=== PATIENT | female | born 1950 | race Two or more races ===

== ENCOUNTER 2021-08-10 16:58 | Emergency (ER) | payer MEDICARE, OTHER ==
[~2021-08-10] VITALS: Ht 154.9 cm; Wt 62.6 kg
[~2021-08-10 16:58] MED LIST: CAPT50TA3 PO; METF500T PO; OMEP20CA4 PO; SERT50TA PO
[2021-08-10 17:58] LABS: HEMATOCRIT 41.6 % (31.2-41.9); MEAN CORPUSCULAR HEMOGLOBIN 30.4 uug (24.7-32.8); MEAN CORPUSCULAR VOLUME 89.7 fL (75.5-95.3); PLATELET COUNT (AUTO) 285 K/uL (179-408)
[2021-08-10 18:05] LABS: CARBON DIOXIDE 28 mmol/L (21-32); CHLORIDE 105 mmol/L (98-107); CREATININE 0.5 mg/dL (0.6-1.3); GLUCOSE 97 mg/dL (74-106); POTASSIUM 4.1 mmol/L (3.5-5.1); UREA NITROGEN, BLOOD 16 mg/dL (7-18)
[2021-08-10 18:10] LABS: ALANINE AMINOTRANSFERASE 18 U/L (14-59); ALKALINE PHOSPHATASE 68 U/L (50-136); ASPARTATE AMINOTRANSFERASE 13 U/L (15-37); BILIRUBIN,DIRECT 0.1 mg/dL (0.0-0.2); BILIRUBIN,TOTAL 0.4 mg/dL (0.2-1.0); TOTAL PROTEIN, SERUM 7.7 g/dL (6.4-8.2)
[2021-08-10] MEDS ORDERED: MECLIZINE HCL 25 MG TABLET PO ONE (19:15)
[2021-08-10] MEDS ORDERED: MECLIZINE HCL 25 MG TABLET ONE (19:34)
--- NOTE | 2021-08-10 21:04 | NUR ---
Patient does not wish to proceed with medical care recommended by Dr. Law. Patient given information related to possible complications, up to and including , which could occur as a result of leaving the hospital at this time. Patient verbalizes understanding of risks involved due to leaving against medical advice. Patient has signed AMA form. Steady gait. denies any dizzyness, PADRON. Denies any pain/discomfort. No changes in LOC. Picked up by son.
[2021-08-10 21:06] VITALS: BP 153/70
== END 2021-08-10 21:06 | disposition left against medical advice (07) ==
LOC: ER 17:00
DX: R55 Syncope and collapse (principal); R00.2 Palpitations; R42 Dizziness and giddiness; I10 Essential (primary) hypertension; K21.9 Gastro-esophageal reflux disease without esophagitis; E11.9 Type 2 diabetes mellitus without complications; Z79.84 Long term (current) use of oral hypoglycemic drugs; Z79.899 Other long term (current) drug therapy; F32.A Depression, unspecified
CPT/HCPCS: 70030-TC; 70450; 71045; 85025; 85730; 93005; A4663; J8597